=== PATIENT | male | born 1970 | race Caucasian/White ===

== ENCOUNTER 2023-05-31 08:23 | Outpatient (CLI) | payer BC, SELFPAY ==
--- NOTE | 2023-06-18 12:14 | WPDSLEEPSTUD ---
Sleep Study Date of Study: 05/31/23 Ordering Provider: Marie Holley, Interpreting Physician: Shereen Peterson MD Sleep Study Type: Split Polysomnogram Height: 1.78 m Weight: 131.542 kg Body Mass Index: 41.5 Neck Circumference (inches): 20 [place]: 10 Reason for Sleep Study Obstructive sleep apnea, did not pursue CPAP after last sleep study due to claustrophobia * 07/15/2021, home sleep test through [facility] severe obstructive sleep apnea, AHI 49, worse in supine position. low sleep efficiency 50%. Sleep History Kimberly Tapia is a 53-year-old man with snoring, restless sleep with frequent awakenings and need for naps during the day. he had a prior home sleep test in 2020 with severe sleep obstructive sleep apnea and 3% of the night spent in periodic breathing however he did not pursue PAP therapy due to claustrophobia. He constantly awakens from sleep feeling short of breath. He rarely wakes at night with heartburn, belching or coughing.??He always snores, and always snores loudly enough that others complain. He rarely has trouble sleeping when he has a cold. He frequently wakes up gasping for breath during the night. He constantly has breathing problems at night observed by others. He frequently sweats excessively at night. He never notices his heart pounding or beating irregularly during the night. He constantly falls asleep during the day. He never falls asleep involuntarily, however rarely falls asleep while driving. He never experiences loss of muscle tone with strong emotion. He never has daytime difficulty at work due to excessive sleepiness. He never feels paralyzed on waking or falling asleep. He never experiences vivid dreams upon waking or falling asleep. He never feels afraid of going to sleep. He never has nightmares. He rarely recalls his dreams. He rarely has thoughts racing through his mind. He rarely feels sad or depressed. He frequently feels anxiety. He rarely notices parts of his body jerk. He rarely kicks during the night. He never feels crawling or aching feelings in his legs. He never feels leg pain at night. He occasionally has morning jaw pain, occasionally grinds his teeth at night. He never feels bothered by pain during the day, never awakened by pain during the night. He occasionally wakes up feeling stiff in the morning, and he rarely wakes feeling sore or achy. He occasionally awakens with pain in his neck, spine, or joints. He has fatigue. Normal bedtime is 10:00 p.m., falling asleep within a 1/2 hour. He wakes multiple times at night on average for just 1 minute, looks at the clock, take some deep breaths and returns to sleep. He typically gets 4 hours of sleep per night. His wake up time is 6:00 a.m.. He takes naps in the day, however he never feels refreshed afterwards. He feels better in the evening compared to other times of day. Habits:??Tobacco: former smoker Caffeine: 1-2 servings. Alcohol: 2-3 servings Recreational substances: yes, type not specified [facility] Past Medical History Medical History (Updated 06/18/23 @ 12:33 by Shereen Peterson MD) Anxiety Depression Diabetes mellitus type 2 in obese Gout Hyperlipidemia Male hypogonadism Obstructive sleep apnea Pre-diabetes Social History Social History (Updated 06/18/23 @ 12:35 by Shereen Peterson MD) Social History: He works in sales Smoking packs per day: 1 Smoking cigarettes per day: 20.0 Years smoked: 36 Smoking pack-years: 36.00 Smoking status: Former smoker Medications Medications: office visit with his primary care shows the following medications bupropion HCL 150 mg a day extended release escitalopram 10 mg daily Mounjaro 2.5 mg/ 0.5 mils pen Injector weekly subcutaneously probenecid 500-colchicine 0.5 mg twice a day when needed for gout rosuvastatin 10 mg a day testosterone 20.25 mg / 1.25 g per pump 1 pump to each arm daily topiramate 25 mg b
[2023-06-18 13:16] VITALS: BMI 41.5
== END 2023-06-01 06:46 | disposition home or self-care (01) ==
LOC: ANHCSM 08:25
PROVIDERS: PCP Family Medicine; Visit Provider Family Medicine
DX: G47.33 Obstructive sleep apnea (adult) (pediatric) (principal)
CPT/HCPCS: 95811